=== PATIENT | female | born 1970 ===

== ENCOUNTER 2018-01-15 05:45 | Day surgery (SDC) | payer MEDICAID ==
[~2018-01-15] VITALS: Ht 157.5 cm; Wt 104.6 kg
[2018-01-15 06:22] VITALS: BP 147/95
[2018-01-15] MEDS ORDERED: SODIUM CHLORIDE 0.9% 1,000 ML IV SCH (06:23)
[2018-01-15 07:16] LABS: INTERNATIONAL NORMALIZED RATIO 1.04 (0.93-1.1); PROTHROMBIN TIME 10.8 Seconds (9.6-11.5)
[2018-01-15] MEDS ORDERED: LIDOCAINE-MPF 1%, 5ML ONE (07:32)
[2018-01-15] MEDS ORDERED: FENTANYL PF 100 MCG/2ML ONE (07:45)
[2018-01-15] MEDS ORDERED: NALOXONE 1 MG/ML, 2ML ONE (07:45)
[2018-01-15] MEDS ORDERED: MIDAZOLAM 1 MG/ML, 5ML ONE (07:45)
[2018-01-15] MEDS ORDERED: FLUMAZENIL 0.1 MG/1 ML, 5ML ONE (07:45)
== END 2018-01-15 11:20 | disposition home or self-care (01) ==
LOC: OUT 05:45 → EDSTATUS 07:30 → OUT 11:20
PROVIDERS: ATTEND Internal Medicine Nephrology
DX: N18.4 Chronic kidney disease, stage 4 (severe) (principal); N25.81 Secondary hyperparathyroidism of renal origin; I12.9 Hypertensive chronic kidney disease with stage 1 through stage 4 chronic kidney disease, or unspecified chronic kidney disease; E66.9 Obesity, unspecified; D64.9 Anemia, unspecified; E87.5 Hyperkalemia; Z98.890 Other specified postprocedural states; Z72.89 Other problems related to lifestyle; Z94.0 Kidney transplant status
CPT/HCPCS: 36415; 50200; 77012; 85610; 88300; 99156; J2250; J3010; J7030; 99157; J2310